=== PATIENT | female | born 1990 | race Caucasian/White ===

== ENCOUNTER 2023-03-09 06:02 | Emergency (ER) | payer OTHER, MEDICAID ==
[~2023-03-09] VITALS: Ht 165.1 cm; Wt 69.0 kg
[2023-03-09 06:09] VITALS: TEMP 97.3
[2023-03-09] MEDS ORDERED: ketorolac tromethamine 15mg/ml inj. IM ONE (06:45)
[2023-03-09 08:35] LABS: URINE HCG NEGATIVE (NEG)
[2023-03-09] MEDS ORDERED: NAPR-56 PO (09:29)
[2023-03-09] MEDS ORDERED: CYCL-1 PO (09:29)
[2023-03-09 10:28] VITALS: BP 119/87; PULSE 81; RESP 18; O2SAT 100
== END 2023-03-09 10:32 | disposition home or self-care (01) ==
LOC: ER 06:04
DX: S16.1XXA Strain of muscle, fascia and tendon at neck level, initial encounter (principal); M54.6 Pain in thoracic spine; V87.7XXA Person injured in collision between other specified motor vehicles (traffic), initial encounter; Y93.89 Activity, other specified; Y92.488 Other paved roadways as the place of occurrence of the external cause; Y99.8 Other external cause status
CPT/HCPCS: 72125; 81025; 96372; 99285; J1885; L0172